=== PATIENT | female | born 1930 | race Caucasian/White ===

== ENCOUNTER 2016-03-18 18:37 | Emergency (ER) | payer MEDICARE, OTHER ==
[~2016-03-18] VITALS: Ht 149.9 cm; Wt 59.0 kg
[2016-03-18 18:50] VITALS: Ht 149.9 cm; Wt 59.0 kg
--- NOTE | 2016-03-18 19:10 | ERA ---
ER Documentation Chief Complaint Date/Time DATE: 03/18/16 TIME: 19:04 Chief Complaint near syncopal episode at dinner table, denies [id number] [id number] HPI History supplemented by EMS and the patient's granddaughter. 86-year-old female with history of diabetes mellitus type 2, hypertension, hyperlipidemia, CVA's with residual mild right-sided weakness, hypothyroidism and new onset dementia brought to the ED via rescue ambulance for evaluation. Patient had just finished eating dinner when she was witnessed by family to become unresponsive for approximately 3 minutes. Her eyes were open but she would not respond. No seizure activity, urinary or fecal incontinence. No witnessed facial droop or weakness. She is currently back to baseline. Patient denies chest pain or palpitations. No shortness of breath or cough. No abdominal pain, nausea, vomiting, diarrhea or constipation. No URI symptoms , body aches or sore throat. Denies dysuria, polyuria, hematuria or flank pain. No fevers or chills. ROS All systems reviewed and are negative except as per history of present illness. Medications Home Meds Reported Medications Folic Acid/Mv,Fe,Other Min (ONE DAILY FOR WOMEN TABLET) 1 Each Tablet, 1 EACH PO , TAB 03/18/16 Simvastatin* (Zocor*) 20 Mg Tablet, 20 MG PO DAILY, #30 TAB 03/18/16 Hydrochlorothiazide* (Hydrochlorothiazide*) 12.5 Mg Tablet, 12.5 MG PO DAILY, # 30 TAB 03/18/16 Levothyroxine Sodium* (Levothyroxine Sodium*) 25 Mcg Tablet, 25 MCG PO BEFORE BREAKFAST, #30 TAB 03/18/16 Aspirin* (Aspirin* EC) 81 Mg Tablet.dr, 81 MG PO DAILY, TAB 03/18/16 Metoprolol Tartrate* (Lopressor*) 25 Mg Tab, 25 MG PO DAILY, #30 TAB 03/18/16 Allergies Allergies: Coded Allergies: No Known Allergy (Unverified , 03/18/16) PMhx/Soc Reviewed in chart. As per HPI. Lives with family. History of Surgery: Yes (Spinal surgery secondary to trauma) Anesthesia Reaction: No Hx Neurological Disorder: Yes (Multiple CVAs, dementia) Hx Respiratory Disorders: No Hx Cardiac Disorders: Yes (Hypertension) Hx Psychiatric Problems: No Hx Miscellaneous Medical Probl: Yes (Diabetes, dyslipidemia,) Hx Alcohol Use: No Hx Substance Use: No Hx Tobacco Use: No Smoking Status: Never smoker FmHx Father: Heart disease, mother: Hypertension. No family history of cancer. Physical Exam Vitals Vital Signs Date Time Temp Pulse Resp B/P Pulse Ox O2 Delivery O2 Flow Rate FiO2 03/18/16 20:27 61 18 142/78 100 Nasal Cannula 2.0 03/18/16 18:50 98.1 66 18 132/74 98 Physical Exam Const: Alert, elderly, no acute distress. Head: Atraumatic Eyes: Pupils equal reactive to light, extraocular movements are intact normal Conjunctiva ENT: Normal External Ears, Nose and Mouth. Neck: Full range of motion. Pharynx is clear. Mucous members are moist. Carotids 2+ bilaterally without bruits. No JVD. Resp: Breath sounds are equal and clear to auscultation bilaterally. No rales rhonchi or wheezes Cardio: Regular rate and rhythm, no murmurs, gallops or rubs Abd: Soft, non tender, non distended. Normal bowel sounds. No masses or abnormal pulsations. Skin: No petechiae or rashes Back: No midline or flank tenderness Ext: No cyanosis, or edema Neur: Awake and alert. Oriented to person. No facial droop. Cranial nerves are grossly intact. Mild right upper extremity and right lower extremity weakness residual from previous CVA. No new weakness. Left upper/ lower extremity motor strength 5/5. Psych: Patient does not appear anxious or depressed. Result Diagram: 03/18/16191903/18/161919 Results 24 hrs Laboratory Tests Test 03/18/16 19:20 03/18/16 23:36 Activated Partial Thromboplast Time 25.8Sec Alanine Aminotransferase (ALT/SGPT) 21IU/L Albumin 4.6g/dl Albumin/Globulin Ratio 1.15 Alkaline Phosphatase 83IU/L Anion Gap 20 Aspartate Amino Transf (AST/SGOT) 25IU/L Basophils # 0.110^3/ul Basophils % 0.7% Blood Urea Nitrogen 13mg/dl Calcium Level 9.9mg/dl Carbon Dioxide Level 31mmol/L Chloride Level 97mmol/L Creatinine 0.94mg/dl Direct Bilirubin 0.00mg/dl Eosinophils # 0.210^3/ul Eosinophils % 2.2% Globulin 4.00g/dl Glucose Level 129mg/dl Hematocrit 46.2% Hemoglobin 15.4g/dl INR International Normalized Ratio 0.95 Indirect Bilirubin 0.2mg/dl Lymphocytes # 3.010^3/ul Lymphocytes % 33.8% Mean Corpuscular Hemoglobin 32.2pg Mean Corpuscular Hemoglobin Concent 33.3g/dl Mean Corpuscular Volume 96.7fl Mean Platelet Volume 9.6fl Monocytes # 0.810^3/ul Monocytes % 8.8% Neutrophils # 4.810^3/ul Neutrophils % 54.5% Nucleated Red Blood Cells # 0.010^3/ul Nucleated Red Blood Cells % 0.0/100WBC Platelet Count 82595^3/UL Potassium Level 4.2mmol/L Prothrombin Time 12.7Sec Prothrombin Time Ratio 1.0 Red Blood Count 4.7810^6/ul Red Cell Distribution Width 13.3% Sodium Level 144mmol/L Total Bilirubin 0.2mg/dl Total Protein 8.6g/dl Troponin I < 0.012ng/ml White Blood Count 8.910^3/ul Urine Bacteria MANY Urine Bilirubin NEGATIVE Urine Clarity CLEAR Urine Color LT. YELLOW Urine Glucose NEGATIVE% Urine Hemoglobin NEGATIVE Urine Ketones TRACE Urine Leukocyte Esterase 1+ Urine Microscopic RBC 2-5/HPF Urine Microscopic WBC 2-5/HPF Urine Nitrite NEGATIVE Urine Specific Sumner 1.010 Urine Squamous Epithelial Cells MANY Urine Total Protein TRACE Urine Urobilinogen 0.2 E.U./dL Urine pH 8.0 EKG: TIME: 19:59. Sinus rhythm. Ventricular rate 60. Left axis deviation. Left bundle branch block. No acute ST segment elevation or depression. No ectopy. No previous EKG available for comparison. EP Interpretation: Abnormal EKG. IMAGING: PROCEDURE: CR, chest CLINICAL INDICATION: Syncope. TECHNIQUE: AP chest. COMPARISON: None available. FINDINGS: The heart is not enlarged. There is calcified atherosclerosis of the aorta. There is no acute infiltrate in the lungs. No pleural effusion. There is question of free air in the left sided abdomen below the left hemidiaphragm. IMPRESSION: 1. Unremarkable chest x-ray. 2. Calcified atherosclerosis of the aortic arch. 3. Question of free air in the left side abdomen below the left hemidiaphragm. Recommend abdominal series for further evaluation. 4. Call report was given to the ER physician, Dr. Blount, 07:35 p.m., 2016. RPTAT: GG .Beto Fletcher MD, Date Time Electronically viewed and signed by .Beto Fletcher MD, MD on 03/18/2016 19:35 .Y/ PROCEDURE: CT Brain without contrast. CLINICAL INDICATION: Weakness and possible stroke TECHNIQUE: A CT of the brain was performed on a GE [employer] 64-slice CT scanner utilizing axial imaging from the skull base through the vertex without IV contrast. Multiplanar reformatted images were made. Images were reviewed on a PACS workstation. The CTDIvol is 45.01 mGy and the DLP is 720.03 mGycm. One of the following 3 dose reduction techniques were used: Automated exposure control; adjustment of the mA and/or kV according to patient size; or use of iterative reconstruction technique. COMPARISON: None available FINDINGS: There is no intracranial hemorrhage, mass effect, or midline shift. No extra- axial fluid collection is seen. The ventricles and sulci are age appropriate. Mild diffuse volume loss is present. Decreased attenuation is present in the bilateral subcortical white matter, bilateral centrum semiovale, bilateral periventricular white matter, bilateral basal ganglia, left thalamus all compatible with chronic moderate microvascular ischemic disease and chronic bilateral basal ganglia and left thalamic lacunar infarcts. Moderate vascular calcifications are present of the bilateral intracranial internal carotid arteries. The visualized scalp and calvarium are normal. The bilateral orbits are normal. The bilateral paranasal sinuses, mastoid air cells and middle ear cavities are clear. IMPRESSION: 1. No evidence of acute intracranial hemorrhage, infarcts or acute intracranial pathology. Consider diffusion weighted MRI as a more sensitive imaging modality to evaluate for acute superimposed on chronic infarcts. 2. Moderate chronic microvascular ischemic disease and chronic bilateral basal ganglia and left thalamic lacunar infarcts. 3. Mild diffuse volume loss 4. Moderate atherosclerotic vascular disease RPTAT: HDC .Estephania Hunt MD, MD Date Time Electronically viewed and signed by .Estephania Hunt MD, MD on 03/18/2016 19: 47 .C/ PROCEDURE: CT Abdomen and Pelvis without contrast CLINICAL INDICATION: Possible free air TECHNIQUE: Transaxial images were obtained through the abdomen and pelvis on a multi-slice scanner without the intravenous contrast administration. No oral contrast had previously been given. Sagittal and coronal re-formations were subsequently reconstructed. One or more of the following dose reduction techniques were used: - Automated exposure control. - Adjustment of the mA and/or kV according to patient size. - Use of iterative reconstruction technique. Radiation dose: CTDIvol = 15.25 mGy; DLP = 823.67 mGy-cm. COMPARISON: No prior studies are available for comparison. FINDINGS: Motion artifact degrades multiple images. Lung bases: The visualized lung bases appear unremarkable. There is a moderate- sized fat containing Bochdalek hernia at the left posterior inferior chest. Coronary artery disease is evident. Liver: Normal in size and in attenuation. There is no focal lesion. Gallbladder: The wall is not thickened. No radiopaque stones are identified. Bile ducts: The intra and extrahepatic bile ducts are normal in caliber. Pancreas: Appears normal with no mass or inflammation evident. Spleen: The spleen is not identified. Adrenals: Normal with no mass identified. Kidneys, ureters and bladder: The left kidney is smaller than the right. A 6 mm fatty density is seen at the periphery of the lateral inferior pole of the left kidney compatible with a small angiomyolipoma. There is no intra renal calcification or hydronephrosis. The ureters are not dilated. The bladder is poorly distended. The wall appears mildly thickened. Reproductive organs: The uterus is midline and contains peripheral calcification. No adnexal mass is identified. Stomach and bowel: There is diverticulosis of the sigmoid and descending colon. There is blurring to the colon secondary to respiratory motion. The stomach is quite distended with food debris. Appendix: The vermiform appendix is not discretely identified. Peritoneum: No free intraperitoneal fluid or air is identified. Aorta: There is atherosclerotic vascular calcification but no abdominal aortic aneurysm is evident. IVC: Unremarkable. Lymph nodes: No pathologically enlarged nodes are identified. Osseous structures: There is an old compression fracture deformity with anterior wedging at T12 with evidence of previous vertebroplasty. The remaining osseous elements appear intact with mild degenerative spine changes noted. IMPRESSION: 1. Motion artifact greatly degrades multiple images. 2. Diverticulosis of the descending and sigmoid colon without evidence of bowel obstruction or inflammation. The vermiform appendix is not identified. The stomach is quite distended with food debris. If the patient is not recently eaten, the possibility of a gastric outlet obstruction cannot be excluded. 3. The spleen is not identified and may have been surgically removed. 4. There is no free intraperitoneal fluid or air. 5. Moderate size fat containing left Bochdalek hernia. 6. 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 There is no evidence of urinary outflow obstruction or ureterolithiasis. The bladder is poorly distended giving the wall is slightly thickened appearance. 7. Atherosclerotic vascular calcification. 8. Moderately severe old compression fracture deformity with anterior wedging at T12 with evidence of previous vertebroplasty. Physician Taylor Date Time Electronically viewed and signed by Physician Taylor on 03/18/2016 20:02 RH/ Procedures/MDM DOCUMENTS REVIEWED: ED nurse, no prior records available [employer] DECISION MAKIN-year-old female with history of diabetes mellitus type 2, hypertension, hyperlipidemia, CVA's with residual mild right-sided weakness, hypothyroidism and new onset dementia brought to the ED via rescue ambulance for evaluation. No CT evidence of acute bleed, infarct or mass. Possible TIA. Doubt seizure. Symptoms may be related to her progressive dementia. No hypoglycemia or acute electrolyte abnormalities. No cardiac dysrhythmia. No evidence of an occult infectious process. No symptoms of myxedema. Patient observed in the ED for over 4 hours. Asymptomatic. Stable vital signs. Stable for discharge with precautionary instructions and outpatient follow-up as counseled. Counseled patient and family regarding diagnosis, diagnostic results, plan for discharge and need for follow-up. Departure Diagnosis: Primary Impression: Near syncope Additional Impressions: Diabetes mellitus type 2 in nonobese Hypertension Qualified Code: I10 - Essential hypertension History of CVA (cerebrovascular accident) UTI (urinary tract infection) Qualified Code: N39.0 - Urinary tract infection without hematuria, site unspecified Condition: KAYKAY Way MD Mar 18, 2016 19:10
--- NOTE | 2016-03-18 19:36 | RADRPT ---
PROCEDURE: CR, chest CLINICAL INDICATION: Syncope. TECHNIQUE: AP chest. COMPARISON: None available. FINDINGS: The heart is not enlarged. There is calcified atherosclerosis of the aorta. There is no acute infi ltrate in the lungs. No pleural effusion. There is question of free air in the left sided abdomen below the left hemidiaphragm. IMPRESSION: 1. Unremarkable chest x-ray. 2. Calcified atherosclerosis of the aortic arch. 3. Question of free air in the left side abdomen below the left hemidiaphragm. Recommend abdominal series for further evaluation. 4. Call report was given to the ER physician, Dr. Blount, 07:35 p.m., 03/18/2016. RPTAT: GG .Beto Fletcher MD, MD Date Time Electronically viewed and signed by .Beto Fletcher MD, MD on 03/18/2016 19:35 .Y/
[2016-03-18 19:41] LABS: ALBUMIN 4.6 g/dl (3.3-4.9); CHLORIDE 97 mmol/L (97-110); POTASSIUM 4.2 mmol/L (3.5-5.1); SODIUM 144 mmol/L (135-144)
[2016-03-18 19:42] LABS: INR 0.95; PARTIAL THROMBOPLASTIN TIME 25.8 Sec (25.0-35.0); PROTIME 12.7 Sec (12.2-14.2)
[2016-03-18 19:43] LABS: CREATININE 0.94 mg/dl (0.44-1.00)
[2016-03-18 19:44] LABS: ALANINE AMINOTRANSFERASE 21 IU/L (13-69); ALBUMIN/GLOBULIN RATIO 1.15; ALKALINE PHOSPHATASE 83 IU/L (42-121); ANION GAP 20 (8-16); ASPARTATE AMINO TRANSFERASE 25 IU/L (15-46); BILIRUBIN,INDIRECT 0.2 mg/dl (0-1.1); BILIRUBIN,TOTAL 0.2 mg/dl (0.2-1.3); BLOOD UREA NITROGEN 13 mg/dl (7-20); CARBON DIOXIDE 31 mmol/L (21-31); GLUCOSE 129 mg/dl (70-220); TOTAL PROTEIN 8.6 g/dl (6.1-8.1)
[2016-03-18 19:45] LABS: BASOPHIL # 0.1 10^3/ul (0.0-0.1); BASOPHILS % 0.7 % (0.0-2.0); CALCIUM 9.9 mg/dl (8.4-10.2); EOSINOPHILS # 0.2 10^3/ul (0.0-0.5); EOSINOPHILS % 2.2 % (0.0-7.0); HEMATOCRIT 46.2 % (37.0-47.0); HEMOGLOBIN 15.4 g/dl (12.0-16.0); LYMPHOCYTES % 33.8 % (15.0-51.0); MEAN CORPUSCULAR HEMOGLOBIN 32.2 pg (29.0-33.0); MEAN CORPUSCULAR HGB CONC 33.3 g/dl (32.0-37.0); MEAN CORPUSCULAR VOLUME 96.7 fl (82.0-101.0); MEAN PLATELET VOLUME 9.6 fl (7.4-10.4); MONOCYTE # 0.8 10^3/ul (0.3-0.9); MONOCYTES % 8.8 % (0.0-11.0); NEUTROPHIL # 4.8 10^3/ul (1.6-7.5); NEUTROPHILS % 54.5 % (39.0-77.0); PLATELET COUNT 270 10^3/UL (140-440); RED BLOOD COUNT 4.78 10^6/ul (4.20-5.40); RED CELL DISTRIBUTION WIDTH 13.3 % (11.5-14.5); UNCORRECTED WBC 8.9 10^3/ul (4.8-10.8); WHITE BLOOD COUNT 8.9 10^3/ul (4.8-10.8)
--- NOTE | 2016-03-18 19:48 | RADRPT ---
PROCEDURE: CT Brain without contrast. CLINICAL INDICATION: Weakness and possible stroke TECHNIQUE: A CT of the brain was performed on a GE [employer] 64-slice CT scanner utilizing axial imaging from the skull base through the vertex without IV contrast. Multiplanar reformatted images were made. Images were reviewed on a PACS workstation. The CTDIvol is 45.01 mGy and the DLP is 720 .03 mGycm. One of the following 3 dose reduction techniques were used: Automated exposure control; adjustment of the mA and/or kV according to patient size; or use of iterative reconstruction technique. COMPARISON: None available FINDINGS: There is no intracranial hemorrhage, mass effect, or midline shift. No extra-axial fluid collection is seen. The ventricles and sulci are age appropriate. Mild diffuse volume loss is present. Decre ased attenuation is present in the bilateral subcortical white matter, bilateral centrum semiovale, bilateral periventricular white matter, bilateral basal ganglia, left thalamus all compatible with c hronic moderate microvascular ischemic disease and chronic bilateral basal ganglia and left thalamic lacunar infarcts. Moderate vascular calcifications are present of the bilateral intracranial inter nal carotid arteries. The visualized scalp and calvarium are normal. The bilateral orbits are normal. The bilateral para nasal sinuses, mastoid air cells and middle ear cavities are clear. IMPRESSION: 1. No evidence of acute intracranial hemorrhage, infarcts or acute intracranial pathology. Consider diffusion weighted MRI as a more sensitive imaging modality to evaluate for acute superimposed on c hronic infarcts. 2. Moderate chronic microvascular ischemic disease and chronic bilateral basal ganglia and left seven lamic lacunar infarcts. 3. Mild diffuse volume loss 4. Moderate atherosclerotic vascular disease RPTAT: HDC .Estephania Hunt MD, MD Date Time Electronically viewed and signed by .Estephania Hunt MD, MD on 03/18/2016 19:47 .C/
[2016-03-18 19:53] LABS: CONDITION 1
[2016-03-18] MEDS ORDERED: METO-448 PO (19:55)
[2016-03-18] MEDS ORDERED: ASPI-664 PO (19:55)
[2016-03-18] MEDS ORDERED: HYDR12.58 PO (19:56)
[2016-03-18] MEDS ORDERED: LEVO25TA53 PO (19:56)
[2016-03-18] MEDS ORDERED: SIMV20TA PO (19:57)
[2016-03-18 19:59] LABS: TROPONIN-I < 0.012 ng/ml (0.00-0.12)
[2016-03-18] MEDS ORDERED: FOLI1TAB48 PO (20:01)
--- NOTE | 2016-03-18 20:02 | RADRPT ---
PROCEDURE: CT Abdomen and Pelvis without contrast CLINICAL INDICATION: Possible free air TECHNIQUE: Transaxial images were obtained through the abdomen and pelvis on a multi-slice scanner without the intravenous contrast administration. No oral contrast had previously been given. Sagit sarah and coronal re-formations were subsequently reconstructed. One or more of the following dose reduction techniques were used: - Automated exposure control. - Adjustment of the mA and/or kV according to patient size. - Use of iterative reconstruction technique. Radiation dose: CTDIvol = 15.25 mGy; DLP = 823.67 mGy-cm. COMPARISON: No prior studies are available for comparison. FINDINGS: Motion artifact degrades multiple images. Lung bases: The visualized lung bases appear unremarkable. There is a moderate-sized fat containing Bochdalek hernia at the left posterior inferior chest. Coronary artery disease is evident. Liver: Normal in size and in attenuation. There is no focal lesion. Gallbladder: The wall is not thickened. No radiopaque stones are identified. Bile ducts: The intra and extrahepatic bile ducts are normal in caliber. Pancreas: Appears normal with no mass or inflammation evident. Spleen: The spleen is not identified. Adrenals: Normal with no mass identified. Kidneys, ureters and bladder: The left kidney is smaller than the right. A 6 mm fatty density is se en at the periphery of the lateral inferior pole of the left kidney compatible with a small angiomyo lipoma. There is no intra renal calcification or hydronephrosis. The ureters are not dilated. The bladder is poorly distended. The wall appears mildly thickened. Reproductive organs: The uterus is midline and contains peripheral calcification. No adnexal mass i s identified. Stomach and bowel: There is diverticulosis of the sigmoid and descending colon. There is blurring t o the colon secondary to respiratory motion. The stomach is quite distended with food debris. Appendix: The vermiform appendix is not discretely identified. Peritoneum: No free intraperitoneal fluid or air is identified. Aorta: There is atherosclerotic vascular calcification but no abdominal aortic aneurysm is evident. IVC: Unremarkable. Lymph nodes: No pathologically enlarged nodes are identified. Osseous structures: There is an old compression fracture deformity with anterior wedging at T12 with evidence of previous vertebroplasty. The remaining osseous elements appear intact with mild degene rative spine changes noted. IMPRESSION: 1. Motion artifact greatly degrades multiple images. 2. Diverticulosis of the descending and sigmoid colon without evidence of bowel obstruction or infl ammation. The vermiform appendix is not identified. The stomach is quite distended with food debri s. If the patient is not recently eaten, the possibility of a gastric outlet obstruction cannot be excluded. 3. The spleen is not identified and may have been surgically removed. 4. There is no free intraperitoneal fluid or air. 5. Moderate size fat containing left Bochdalek hernia. 6. 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 There is no evidence of uri nary outflow obstruction or ureterolithiasis. The bladder is poorly distended giving the wall is sl ightly thickened appearance. 7. Atherosclerotic vascular calcification. 8. Moderately severe old compression fracture deformity with anterior wedging at T12 with evidence of previous vertebroplasty. Physician Taylor Date Time Electronically viewed and signed by Lanre Fair Physician on 03/18/2016 20:02 /
[2016-03-18 23:49] LABS: ADD UMIC YES; URINE BILIRUBIN (Dip) NEGATIVE (NEGATIVE); URINE BLOOD (Dip) NEGATIVE (NEGATIVE); URINE COLOR LT. YELLOW (YELLOW); URINE GLUCOSE (Dip) NEGATIVE (NEGATIVE); URINE KETONES (Dip) TRACE (NEGATIVE); URINE LEUKOCYTE ESTERASE (Dip) 1+ (NEGATIVE); URINE NITRITE (Dip) NEGATIVE (NEGATIVE); URINE TOTAL PROTEIN (Dip) TRACE (NEGATIVE); URINE UROBILINOGEN (Dip) 0.2 E.U./dL (0.1-1.0)
[2016-03-18 23:58] LABS: BACTERIA,URINE MANY; SQUAMOUS EPITHELIAL CELL,UR MANY
[2016-03-19] MEDS ORDERED: NITR-58 PO (00:01)
[2016-03-19 00:15] VITALS: BP 129/68; PULSE 73; RESP 18
[2016-03-19] MEDS ORDERED: NITROFURANTOIN (SR) 100 MG CAP PO ONE (00:30)
== END 2016-03-19 00:15 | disposition home or self-care (01) ==
LOC: E/R 18:37
DX: R55 Syncope and collapse (principal); E11.9 Type 2 diabetes mellitus without complications; I10 Essential (primary) hypertension; N39.0 Urinary tract infection, site not specified; E03.9 Hypothyroidism, unspecified; Z79.82 Long term (current) use of aspirin; Z86.73 Personal history of transient ischemic attack (TIA), and cerebral infarction without residual deficits
CPT/HCPCS: 36415; 70450; 71010; 74176; 80053; 81001; 81003; 84484; 85025; 85610; 85730; 87086; 93005